=== PATIENT | male | born 1985 | race Caucasian/White ===

== ENCOUNTER 2017-03-12 03:26 | Emergency (ER) | payer MEDICAID, OTHER ==
[~2017-03-12] VITALS: Ht 180.3 cm; Wt 99.5 kg
[~2017-03-12 03:26] MED LIST: CIPR500T4 PO; HYDR-3498 PO; METR500T14 PO
[2017-03-12 03:30] VITALS: Ht 180.3 cm; Wt 99.5 kg
[2017-03-12] MEDS ORDERED: SOD CHLORIDE 0.9% 1,000 ML IV STA (04:00)
[2017-03-12] MEDS ORDERED: ONDANSETRON 4 MG INJ IV STA (04:00)
[2017-03-12] MEDS ORDERED: morphine 4 MG/ML VIAL IV STA (04:00)
[2017-03-12 04:38] LABS: BASOPHILS % 0.4 % (0.0-2.0); EOSINOPHILS # 0.1 10^3/ul (0.0-0.5); EOSINOPHILS % 0.8 % (0.0-7.0); HEMATOCRIT 44.2 % (42.0-52.0); LYMPHOCYTES # 4.6 10^3/ul (0.8-2.9); LYMPHOCYTES % 46.8 % (15.0-51.0); MEAN CORPUSCULAR HEMOGLOBIN 28.4 pg (29.0-33.0); MEAN CORPUSCULAR HGB CONC 33.9 g/dl (32.0-37.0); MEAN CORPUSCULAR VOLUME 83.7 fl (82.0-101.0); MEAN PLATELET VOLUME 11.6 fl (7.4-10.4); MONOCYTE # 0.5 10^3/ul (0.3-0.9); MONOCYTES % 5.3 % (0.0-11.0); NEUTROPHIL # 4.5 10^3/ul (1.6-7.5); NEUTROPHILS % 46.5 % (39.0-77.0); PLATELET COUNT 200 10^3/UL (140-415); RED BLOOD COUNT 5.28 10^6/ul (4.70-6.10); RED CELL DISTRIBUTION WIDTH 12.9 % (11.5-14.5); WHITE BLOOD COUNT 9.8 10^3/ul (4.8-10.8)
[2017-03-12 04:56] LABS: ALBUMIN 4.4 g/dl (3.3-4.9); ALBUMIN/GLOBULIN RATIO 1.25; BILIRUBIN,INDIRECT 0.2 mg/dl (0-1.1); BILIRUBIN,TOTAL 0.2 mg/dl (0.2-1.3); CREATININE 1.02 mg/dl (0.61-1.24); POTASSIUM 4.3 mmol/L (3.5-5.1); TOTAL PROTEIN 7.9 g/dl (6.1-8.1)
[2017-03-12 04:57] LABS: URINE BLOOD (Dip) POC Negative (NEGATIVE)
[2017-03-12 05:15] LABS: ADD UMIC YES; UR AMORPHOUS CRYSTAL FEW /HPF (NONE SEEN); UR ASCORBIC ACID NEGATIVE (NEGATIVE); UR BILIRUBIN (Dip) NEGATIVE (NEGATIVE); UR BLOOD (Dip) NEGATIVE (NEGATIVE); UR CLARITY CLOUDY (CLEAR); UR COLOR YELLOW (YELLOW); UR GLUCOSE (Dip) NEGATIVE (NEGATIVE); UR KETONES (Dip) NEGATIVE (NEGATIVE); UR LEUKOCYTE ESTERASE (Dip) NEGATIVE Leu/ul (NEGATIVE); UR MUCUS FEW /HPF (NONE SEEN); UR NITRITE (Dip) NEGATIVE (NEGATIVE); UR RBC 0 /HPF (0-5); UR TOTAL PROTEIN (Dip) NEGATIVE (NEGATIVE); UR UROBILINOGEN (Dip) 1+ mg/dL (NEGATIVE)
[2017-03-12 05:28] VITALS: BP 136/78; PULSE 81; RESP 17; TEMP 98.2
[2017-03-12] MEDS ORDERED: FENTAnyl 50 MCG/ML VIAL IV ONE ×2 (05:30→06:00)
--- NOTE | 2017-03-12 06:02 | RADRPT ---
PROCEDURE: CT Abdomen and pelvis without contrast. CLINICAL INDICATION: Abdominal pain. TECHNIQUE: CT scan of the abdomen and pelvis was performed on a multi-detector high-resolution CT scanner. Contiguous axial images were obtained from the lung bases to the ischial tuberosities wit hout intravenous contrast. Coronal and sagittal reformatted images were also obtained. Images were reviewed on the PACS workstation. DICOM images are available. One or more of the following dose reduction techniques were used: - Automated exposure control. - Adjustment of the mA and/or kV according to patient size. - Use of iterative reconstruction technique. Exam CTD/vol = 20.49 mGy. Total exam DLP = 1344.60 mGy-cm. COMPARISON: 07/03/2015. FINDINGS: Evaluation of the lung bases demonstrates mild bibasilar atelectasis. Abdomen: The liver is normal in size and diffusely low in attenuation consistent with mild fatty in filtration. There is no focal mass or dilatation of the biliary tree. The gallbladder is not diste nded. The spleen, pancreas and bilateral adrenal glands are within normal limits. Bilateral kidney s are normal in size with no contour deforming mass identified. There is no radiopaque renal or ure teral calculus identified. There is no hydronephrosis or hydroureter. There is no retroperitoneal adenopathy. The abdominal aorta is of normal caliber. There is no abnormal bowel wall thickening or distension. There is no bowel obstruction or free air . A normal appendix is identified. There is no diverticulosis or diverticulitis. There is mild st randing of the central mesenteric fat. There is no ascites. Pelvis: The bladder is unremarkable. The prostate and seminal vesicles are within normal limits. There is no significant pelvic adenopathy or free fluid. Evaluation of the osseous structures demonstrates no suspicious lytic or blastic lesion. IMPRESSION: Mild stranding of the central mesenteric fat represents nonspecific mesenteritis. Mild fatty infiltration of the liver. Mild bibasilar atelectasis. Otherwise no acute abnormality identified within the abdomen and pelvis. .Valente Richardson MD, MD Date Time Electronically viewed and signed by .Valente Richardson MD, MD on 03/12/2017 06:01 .T/
--- NOTE | 2017-03-12 07:41 | RADRPT ---
PROCEDURE: US Abdomen. CLINICAL INDICATION: pain w stone history TECHNIQUE: Multiple real-time images were acquired of the patient's abdomen and retroperitoneum ut ilizing a high resolution transducer. COMPARISON: CT abdomen of the same day FINDINGS: The liver demonstrates diffuse increased echogenicity. No focal lesions are seen. The liver measures 17.4 cm in length. There are gallstones in the gallbladder neck, which are not mobile.. There is n o pericholecystic fluid or gallbladder wall thickening. No intra or extrahepatic biliary dilatation is seen. The common bile duct measures 4 mm in maximal dimension. The visualized portions of the p ancreas are unremarkable. No free fluid is identified. The right kidney measures 9.3 cm in long dimension. There is no right hydronephrosis or visualized r enal calculi. The proximal aorta measures cm in transverse dimension. IMPRESSION: 1. Non mobile gallstones in the gallbladder neck. No gallbladder wall thickening or pericholecystic fluid. Sonographic Waldron's sign reported absent. 2. Fatty infiltration and enlargement of the liver. 3. No biliary dilatation or right hydronephrosis. RPTAT: PP .Felice Benitez MD, MD Date Time Electronically viewed and signed by .Felice Benitez MD, on 03/12/2017 07:41 .T/
[2017-03-12] MEDS ORDERED: HYDR-902 PO (08:33)
[2017-03-12] MEDS ORDERED: DICY10CA60 PO (08:33)
--- NOTE | 2017-03-12 08:36 | ERD ---
ER Documentation Chief Complaint Chief Complaint epigastric pain just now HPI This is a 31-year-old male with a history of gallstones complains of epigastric pain radiation to the back described as a sharp pain onset 30 minutes prior to arrival. Patient says he has gallstones in the past and this feels similar. He is also had kidney stones does not feel similar to that. It nonbilious nonbloody vomiting 1 with nausea but no diarrhea. No chest pain or shortness of breath. Pain is moderate to severe at onset but currently is gone at time of exam ROS All systems reviewed and are negative except as per history of present illness. Medications Home Meds Active Scripts Dicyclomine Hcl* (Bentyl*) 10 Mg Capsule, 20 MG PO QID, #30 CAP Prov:LEKKOS,APOSTOLOS A. DO 03/12/17 Hydrocodone/Acetaminophen ([place] 10-325 Tablet) 1 Each Tablet, 1 TAB PO Q6H Y for PAIN, #20 TAB Prov:SARAH YIPSTOLOS A. DO 03/12/17 Hydrocodone Bit-Acetaminophen* ([place]*) 5-325 Mg Tab, 1 TAB PO Q4H Y for PAIN LEVEL 6-10 for pa Days, TAB Prov:LOI VOSS 07/03/15 Metronidazole* (Metronidazole*) 500 Mg Tablet, 500 MG PO BID for 10 Days, TAB Prov:LOI VOSS 07/03/15 Ciprofloxacin Hcl* (Ciprofloxacin Hcl*) 500 Mg Tablet, 500 MG PO BID for 10 Days , TAB Prov:LOI VOSS 07/03/15 Allergies Allergies: Coded Allergies: No Known Allergy (Unverified , 07/03/15) PMhx/Soc Medical and Surgical Hx: pt denies Medical Hx, pt denies Surgical Hx History of Surgery: No Anesthesia Reaction: No Hx Neurological Disorder: No Hx Respiratory Disorders: No Hx Cardiac Disorders: No Hx Psychiatric Problems: No Hx Miscellaneous Medical Probl: Yes (KIDNEY/GALLSTONES) Hx Alcohol Use: Yes (SOCIALLY) Hx Substance Use: No Hx Tobacco Use: Yes Smoking Status: Current every day smoker FmHx Family History: No coronary disease Physical Exam Vitals Vital Signs Date Time Temp Pulse Resp B/P Pulse Ox O2 Delivery O2 Flow Rate FiO2 03/12/17 05:28 98.2 81 17 136/78 97 Room Air 12/24/17 03:30 96.6 92 20 179/93 100 Physical Exam Const: Well-developed, well-nourished Head: Atraumatic, normocephalic Eyes: Normal Conjunctiva, PERRLA, EOMI, normal sclera, no nystagmus ENT: Normal External Ears, Nose and Mouth, moist mucus membranes. Neck: Full range of motion. No meningismus, no lymphadenopathy. Resp: Clear to auscultation bilaterally, no wheezing, rhonchi, rales Cardio: Regular rate and rhythm, no murmurs, S1 S2 present Abd: Soft, non tender x 4, non distended. Normal bowel sounds, no guarding or rebound, no pulsitile abdominal masses or bruits Skin: No petechiae or rashes, no ecchymosis , no maculopapular rash Back: No midline or flank tenderness Ext: No cyanosis, or edema, FROM x 4, normal inspection, neurovascularly intact x 4 Neur: Awake and alert, STR 5/5 x 4, sensation intact x 4, no focal findings, cerebellum intact Psych: Normal Mood and Affect Result Diagram: 03/12/175 03/12/175 Results 24 hrs Laboratory Tests Test 03/12/17 04:05 03/12/17 04:48 03/12/17 04:57 White Blood Count 9.810^3/ul Red Blood Count 5.2810^6/ul Hemoglobin 15.0g/dl Hematocrit 44.2% Mean Corpuscular Volume 83.7fl Mean Corpuscular Hemoglobin 28.4pg Mean Corpuscular Hemoglobin Concent 33.9g/dl Red Cell Distribution Width 12.9% Platelet Count 74248^3/UL Mean Platelet Volume 11.6fl Neutrophils % 46.5% Lymphocytes % 46.8% Monocytes % 5.3% Eosinophils % 0.8% Basophils % 0.4% Nucleated Red Blood Cells % 0.0/100WBC Neutrophils # 4.510^3/ul Lymphocytes # 4.610^3/ul Monocytes # 0.510^3/ul Eosinophils # 0.110^3/ul Basophils # 0.010^3/ul Nucleated Red Blood Cells # 0.010^3/ul Sodium Level 141mmol/L Potassium Level 4.3mmol/L Chloride Level 103mmol/L Carbon Dioxide Level 23mmol/L Anion Gap 19 Blood Urea Nitrogen 12mg/dl Creatinine 1.02mg/dl Glucose Level 121mg/dl Calcium Level 10.0mg/dl Total Bilirubin 0.2mg/dl Direct Bilirubin 0.00mg/dl Indirect Bilirubin 0.2mg/dl Aspartate Amino Transf (AST/SGOT) 30IU/L Alanine Aminotransferase (ALT/SGPT) 83IU/L Alkaline Phosphatase 83IU/L Total Protein 7.9g/dl Albumin 4.4g/dl Globulin 3.50g/dl Albumin/Globulin Ratio 1.25 Lipase 134U/L Urine Color YELLOW Urine Clarity CLOUDY Urine pH 8.0 Urine Specific [place] 1.020 Urine Ketones NEGATIVEmg/dL Urine Nitrite NEGATIVEmg/dL Urine Bilirubin NEGATIVEmg/dL Urine Urobilinogen 1+mg/dL Urine Leukocyte Esterase NEGATIVELeu/ul Urine Microscopic RBC 0/HPF Urine Microscopic WBC 0/HPF Urine Amorphous Crystals FEW/HPF Urine Mucus FEW/HPF Urine Hemoglobin NEGATIVEmg/dL Urine Glucose NEGATIVEmg/dL Urine Total Protein NEGATIVEmg/dl Bedside Urine pH (LAB) 7.5 Bedside Urine Protein (LAB) 1+ Bedside Urine Glucose (UA) Negative Bedside Urine Ketones (LAB) Negative Bedside Urine Blood Negative Bedside Urine Nitrite (LAB) Negative Bedside Urine Leukocyte Esterase (L Negative Current Medications Medications (Trade) Dose Ordered Sig/Julissa Route PRN Reason Start Time Stop Time Status Last Admin Dose Admin Sodium Chloride (NS) 1,000 ml @ 1,000 mls/hr Q1H STAT IV 03/12/17 04:00 03/12/17 04:59 DC 03/12/17 04:09 Morphine Sulfate (morphine) 10 mg ONCE STAT IV 03/12/17 04:00 03/12/17 04:01 DC 03/12/17 04:08 Ondansetron HCl (Zofran Inj) 4 mg ONCE STAT IV 03/12/17 04:00 03/12/17 04:01 DC 03/12/17 04:09 Fentanyl (Sublimaze) 50 mcg ONCE ONCE IV 03/12/17 05:30 03/12/17 05:36 DC 03/12/17 05:43 Fentanyl (Sublimaze) 50 mcg ONCE ONCE IV 03/12/17 06:00 03/12/17 06:01 DC 03/12/17 05:52 Procedures/MDM PROCEDURE: CT Abdomen and pelvis without contrast. CLINICAL INDICATION: Abdominal pain. TECHNIQUE: CT scan of the abdomen and pelvis was performed on a multi- detector high-resolution CT scanner. Contiguous axial images were obtained from the lung bases to the ischial tuberosities without intravenous contrast. Coronal and sagittal reformatted images were also obtained. Images were reviewed on the PACS workstation. DICOM images are available. One or more of the following dose reduction techniques were used: - Automated exposure control. - Adjustment of the mA and/or kV according to patient size. - Use of iterative reconstruction technique. Exam CTD/vol = 20.49 mGy. Total exam DLP = 1344.60 mGy-cm. COMPARISON: 07/03/2015. FINDINGS: Evaluation of the lung bases demonstrates mild bibasilar atelectasis. Abdomen: The liver is normal in size and diffusely low in attenuation consistent with mild fatty infiltration. There is no focal mass or dilatation of the biliary tree. The gallbladder is not distended. The spleen, pancreas and bilateral adrenal glands are within normal limits. Bilateral kidneys are normal in size with no contour deforming mass identified. There is no radiopaque renal or ureteral calculus identified. There is no hydronephrosis or hydroureter. There is no retroperitoneal adenopathy. The abdominal aorta is of normal caliber. There is no abnormal bowel wall thickening or distension. There is no bowel obstruction or free air. A normal appendix is identified. There is no diverticulosis or diverticulitis. There is mild stranding of the central mesenteric fat. There is no ascites. Pelvis: The bladder is unremarkable. The prostate and seminal vesicles are within normal limits. There is no significant pelvic adenopathy or free fluid. Evaluation of the osseous structures demonstrates no suspicious lytic or blastic lesion. IMPRESSION: Mild stranding of the central mesenteric fat represents nonspecific mesenteritis. Mild fatty infiltration of the liver. Mild bibasilar atelectasis. Otherwise no acute abnormality identified within the abdomen and pelvis. .Valente Richardson MD, MD Date Time Electronically viewed and signed by .Valente Richardson MD, MD on 03/12/2017 06:01 .T/ CC: MAYCO NINO DO PROCEDURE: US Abdomen. CLINICAL INDICATION: pain w stone history TECHNIQUE: Multiple real-time images were acquired of the patient's abdomen and retroperitoneum utilizing a high resolution transducer. COMPARISON: CT abdomen of the same day FINDINGS: The liver demonstrates diffuse increased echogenicity. No focal lesions are seen. The liver measures 17.4 cm in length. There are gallstones in the gallbladder neck, which are not mobile.. There is no pericholecystic fluid or gallbladder wall thickening. No intra or extrahepatic biliary dilatation is seen. The common bile duct measures 4 mm in maximal dimension. The visualized portions of the pancreas are unremarkable. No free fluid is identified. The right kidney measures 9.3 cm in long dimension. There is no right hydronephrosis or visualized renal calculi. The proximal aorta measures cm in transverse dimension. IMPRESSION: 1. Non mobile gallstones in the gallbladder neck. No gallbladder wall thickening or pericholecystic fluid. Sonographic Waldron's sign reported absent. 2. Fatty infiltration and enlargement of the liver. 3. No biliary dilatation or right hydronephrosis. RPTAT: PP .Felice Benitez MD, MD Date Time Electronically viewed and signed by .Felice Benitez MD, on 03/12/2017 07:41 .T/ CC: MAYCO NINO DO Chief for gallstone attack with Bentyl and [place] and follow-up no evidence of cholecystitis no liver function elevation, he is pain-free Departure Diagnosis: Primary Impression: Gallstone Cholecystitis presence: without cholecystitis Biliary obstruction: without biliary obstruction Qualified Code: K80.20 - Calculus of gallbladder without cholecystitis without obstruction Condition: Stable Patient Instructions: IZABELA Rosa DO Mar 12, 2017 08:36
== END 2017-03-12 08:56 | disposition home or self-care (01) ==
LOC: FTE 03:26
DX: K80.20 Calculus of gallbladder without cholecystitis without obstruction (principal); F17.210 Nicotine dependence, cigarettes, uncomplicated
CPT/HCPCS: 36415; 74176; 76705; 80053; 81001; 83690; 85025; 96374; 96375; 96376; J2270; J2405; J3010; J7030; Z7502; 81003

== ENCOUNTER 2017-03-20 13:37 | Emergency (ER) | END 2017-03-20 16:17 | disposition home or self-care (01) ==